=== PATIENT | male | born 1970 | race Caucasian/White ===

== ENCOUNTER 2020-04-03 14:13 | Emergency (ER) | payer OTHER ==
[~2020-04-03] VITALS: Ht 175.3 cm; Wt 99.8 kg
[2020-04-03 14:35] LABS: ABSOLUTE NEUTROPHILS 4.3 thou/uL (1.4-8.2); BASOPHILS 1.2 % (0.0-2.0); EOSINOPHILS 2.2 % (0.0-3.0); HEMATOCRIT 45.7 % (42.0-52.0); HEMOGLOBIN 15.5 gm/dL (14.0-18.0); LYMPHOCYTES 29.7 % (24.0-44.0); MCH 30.4 pg (26.0-34.0); MCHC 33.8 g/dL (28.0-37.0); MCV 90.1 fL (80.0-100.0); MONOCYTES 7.5 % (1.0-8.0); PLATELET COUNT 294 thou/uL (150-400); POLYS 59.4 % (36.0-66.0); RBC 5.08 mil/uL (4.50-6.00); RDW 13.8 % (10.5-14.5); WBC 7.3 thou/uL (4.0-11.0)
[2020-04-03 14:44] LABS: ANION GAP 8 mmol/L (7-16); BUN 9 mg/dL (7-18); CALCIUM 8.6 mg/dL (8.5-10.1); CHLORIDE 106 mmol/L (98-107); CO2 28 mmol/L (21-32); GLUCOSE 104 mg/dL (74-106); SODIUM 142 mmol/L (136-145)
[2020-04-03 14:53] LABS: TROPONIN-I <0.06 ng/mL (<0.06)
[2020-04-03 16:18] VITALS: BP 155/107
--- NOTE | 2020-04-03 16:41 | EKG ---
[facility] [place] [address] ELECTROCARDIOGRAM REPORT Name: SANTA MENDOZA Room #: REG [facility]..#: [id number] Admission: 04/03/20 Attend Phys: Discharge: Date of : 66 Report #: [id number] THIS REPORT FOR: cc: Lyndsay Cagle MD, Tuongvan T. 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
== END 2020-04-03 17:43 | disposition home or self-care (01) ==
LOC: ER 14:13
PROVIDERS: Emergency Medicine
DX: R07.9 Chest pain, unspecified (principal); R45.89 Other symptoms and signs involving emotional state; F17.210 Nicotine dependence, cigarettes, uncomplicated; Z72.89 Other problems related to lifestyle; Y90.5 Blood alcohol level of 100-119 mg/100 ml

== ENCOUNTER 2020-08-14 16:38 | Emergency (ER) | payer OTHER ==
[~2020-08-14] VITALS: Ht 172.7 cm; Wt 99.8 kg
[2020-08-14 17:32] VITALS: BP 166/115
--- NOTE | 2020-08-15 07:16 | EKG ---
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 : 1970 Requested By: Maikol Owens Order Number: [id number] MD: Yovany Mitchell Measurements Intervals [place] Rate: 79 P: -2 AR: 118 QRS: -27 QRSD: 86 T: 57 QT: 372 QTc: 427 Interpretive Statements Sinus rhythm Borderline short AR interval Borderline left axis deviation Abnormal R-wave progression, early transition Compared to ECG 04/03/2020 14:15:25 Right ventricular hypertrophy no longer present Electronically Signed On 08-15-2020 7:16:34 [employer] by Yovany Mitchell [email or web address] <ELECTRONICALLY SIGNED> By: Yovany Mitchell MD, [facility] 08/15/20 0716 48 48 Yovany Mitchell MD, FACC /EPI
== END 2020-08-14 17:33 | disposition home or self-care (01) ==
LOC: ER 16:38
DX: I10 Essential (primary) hypertension (principal); Z53.21 Procedure and treatment not carried out due to patient leaving prior to being seen by health care provider